=== PATIENT | male | born 1975 | race Two or more races ===

== ENCOUNTER 2025-03-08 09:35 | Emergency (ER) | payer OTHER, SELFPAY ==
[2025-03-08 09:55] VITALS: BP 126/85; PULSE 75; RESP 19; TEMP 37; O2SAT 99; BMI 26.9
--- NOTE | 2025-03-08 09:59 | XR_ITS ---
Examination: Knee, left , 3 views Technique: Knee AP, lateral, oblique 3 views Date and time of exam: March 08, 2025 1010 hours INDICATIONS: Left knee pain beginning 2 weeks ago. FINDINGS: Mild osteoarthritis medial patellofemoral joint Mild osteopenia No fracture or dislocation Minimal knee effusion IMPRESSION: Mild osteoarthritis
--- NOTE | 2025-03-08 11:12 | PD.EDLOWEX ---
Lower Extremity Injury RME/HPI General Chief Complaint: Extremity Injury, Lower Stated Complaint: LEFT KNEE PAIN NO INJURY Time Seen by Provider: 03/08/25 10:00 Source: patient Arrival date/time: 03/08/25 09:35 49-year-old male with no known medical history presents to the emergency room with a chief complaint of left-sided knee tenderness and swelling x 2 weeks. Mode of arrival: ambulatory Limitations: no limitations Related Data Home Medications ?Medication ?Instructions ?Recorded ?Confirmed Cyclobenzaprine * (FLEXERIL *) 10 mg PO Q8HR PRN MUSCLE SPASMS #0 02/04/14 tabs omeprazole 20 mg capsule,delayed 20 mg PO QDAY ##0 02/04/14 release (Prilosec) Previous Rx's ?Medication ?Instructions ?Recorded Hydrocodone Bit/Acetaminophen 1 tab PO QIDPRN ##20 12/07/12 ([place] 10-325 Tablet) Allergies Allergy/AdvReac Type Severity Reaction Status Date / Time NKA* Allergy Uncoded 03/08/25 09:38 Review of Systems Review of Systems Systems Reviewed: All systems reviewed, normal except as documented Constitutional Constitutional: Reports system reviewed and no additional complaints, except as documented, Denies fatigue, Denies fever(s), Denies headache(s) and Denies weakness Eyes Eyes: Reports system reviewed and no additional complaints, except as documented, Denies blurry vision and Denies change in vision ENT Ears, Nose, Mouth, and Throat: Reports system reviewed and no additional complaints, except as documented, Denies otalgia, Denies headache(s), Denies nasal congestion, Denies throat swelling and Denies vertigo Cardiovascular Cardiovascular: Reports system reviewed and no additional complaints, except as documented, Denies chest pain, Denies dyspnea and Denies dyspnea on exertion Respiratory Respiratory: Reports system reviewed and no additional complaints, except as documented, Denies chest congestion, Denies cough, Denies dyspnea, Denies dyspnea on exertion and Denies wheezing Gastrointestinal Gastrointestinal: Reports system reviewed and no additional complaints, except as documented, Denies abdominal pain, Denies cramping, Denies nausea and Denies vomiting Genitourinary Genitourinary: Reports system reviewed and no additional complaints, except as documented, Denies dysuria and Denies hematuria Musculoskeletal Musculoskeletal: Reports system reviewed and no additional complaints, except as documented, Reports arthralgias, Denies back pain, Reports joint swelling and Reports limited range of motion Integumentary/Breasts Skin/Breast: Reports system reviewed and no additional complaints, except as documented and Denies wounds Neurologic Neurologic: Reports system reviewed and no additional complaints, except as documented, Denies confusion, Denies headache(s), Denies lack of coordination, Denies vertigo and Denies weakness Psychiatric Psychiatric: Reports system reviewed and no additional complaints, except as documented, Denies anxiety, Denies confusion, Denies depression, Denies paranoia, Denies suicidal ideation and Denies tactile hallucinations Endocrine Endocrine: Reports system reviewed and no additional complaints, except as documented and Denies fatigue Hematologic/Lymphatic Hematologic/Lymphatic: Reports system reviewed and no additional complaints, except as documented and Denies lymphadenopathy Allergic/Immunologic Allergic/Immunologic: Reports system reviewed and no additional complaints, except as documented, Denies throat swelling, Denies urticaria and Denies wheezing Past Medical History Social History SMOKING STATUS: Never smoker ED Exam General Limitations: Present no limitations General appearance: Present alert and in no apparent distress Head Head exam: Present atraumatic Eye Eye exam: Present normal appearance, PERRL and EOMI ENT ENT exam: Present normal exam, normal oropharynx and mucous membranes moist Neck Neck exam: Present normal inspection, full ROM and trachea midline Chest Chest inspection: Present normal inspection and symmetric chest wall rise Respiratory Respiratory exam: Present normal lung sounds bilaterally Cardiovascular Cardiovascular exam: Present regular rate, normal rhythm and normal heart sounds Abdominal Exam Abdominal exam: Present soft and normal bowel sounds Extremities Exam Extremities exam: Present normal inspection and full ROM Expanded Lower Extremity Exam Hip/Pelvis exam: Present normal inspection Upper leg exam: Present normal inspection Knee exam: Present full ROM, tenderness, swelling, effusion, pain with valgus, laxity with valgus, pain with varus and knee extension intact; Absent erythema Lower leg exam: Present normal inspection Ankle exam: Present normal inspection Foot/toe exam: Present normal inspection Gait: observed and limited by pain Back Exam Back exam: Present normal inspection and full ROM Neurological Exam Neurological exam: Present alert, oriented X3 and CN II-XII intact Psychiatric Psychiatric exam: Present normal affect and normal mood Skin Skin exam: Present warm, dry, intact and normal color Course Quality Measures none Orders Category Date Time Status XR knee LT 3V Stat Exams 03/08/25 09:59 Completed Vital Signs Vital signs: Vital Signs Temperature 98.6 F 03/08/25 09:55 Pulse Rate 75 03/08/25 09:55 Respiratory Rate 19 03/08/25 09:55 Blood Pressure 126/85 H 03/08/25 09:55 Pulse Oximetry (%) 99 03/08/25 09:55 Oxygen Delivery Method Room Air 03/08/25 09:55 O2 saturation 99% within normal limits Extremity Injury, Lower MDM Narrative MDM Narrative:: 49-year-old male with no known medical history presents to the emergency room with a chief complaint of left-sided knee tenderness and swelling x 2 weeks. Patient is hemodynamically stable and in no apparent distress. Patient denies any trauma or fall Physical examination shows tenderness, mild swelling and pain to the left knee. There is pain with palpation to the lateral side on the left. There is no warmth or erythema. Patient has a knee brace on that he purchased on [employer]. X-ray of the left knee was completed and was negative for any acute fracture or dislocation and shows osteoarthritis of the left knee. Patient was discharged and educated that if the signs and symptoms continue that he will need to follow-up with his primary care provider for an MRI to check for any ligament damage or tears. Patient data External records reviewed:: [facility] Clinical information provided by:: patient Social determinants that could affect healthcare access:: none Patient has the following chronic illnesses:: No chronic illness How is presenting disease/condition affected by chronic disease/condition?: no chronic disease Evaluation data The following diagnostics were reviewed and interpreted by me:: lab results and radiology exam(s) Lab and/or radiology exams considered but not ordered:: Labs and radiology exams considered and ordered Interpretation Summary: Left knee [id number]: Mild osteoarthritis medial patellofemoral joint Mild osteopenia No fracture or dislocation Minimal knee effusion IMPRESSION: Mild osteoarthritis Medications / Prescriptions Medications or Prescriptions considered but not ordered:: No medication given Medication administrations:: No medication given Consultations Consultation(s) initiated? (list below): No Diagnosis Extremity Injury, Lower Differential Diagnosis: ankle sprain and strain, acute internal derangement of knee and other (Left knee pain//left knee fracture/osteoarthritis of the knee) Most likely diagnosis given after review of the tests above:: Osteoarthritis of the left knee Admission Indicated Admission indicated?: not indicated Admission Request Was there a request for admission?: No Disposition Plan Disposition Plan: Discharge Discharge Attestation Discharge Attestation: The patient and all family members were given an opportunity to ask questions and understood the discharge instructions. Discharge instructions specifically effects, indications for sooner follow up or return to the emergency department, and the expected course of current diagnosis. Patient condition: Stable Discharge Plan Plan Patient Disposition: HOME (Self Care) Disposition Comment: Stable Prescriptions/Referrals Prescriptions/Med Rec: No Action Hydrocodone Bit/Acetaminophen ([place] 10-325 Tablet) 1 TAB tablet 1 tab PO QIDPRN Qty: 20 0RF omeprazole [Prilosec] 20 MG capsule,delayed release(DR/EC) 20 mg PO QDAY Qty: 0 Patient Comments: TO SUPPRESS GASTRIC ACID SECRETIONS Cyclobenzaprine * (FLEXERIL *) 10 MG tablet 10 mg PO Q8HR PRN (Reason: MUSCLE SPASMS) Qty: 0 Referrals: No Primary/Family,Physician [Primary Care Provider] - In 1 week Problem List Clinical Impression: Osteoarthritis of left knee Patient/Caregiver Discharge Instructions Education Materials: ED Osteoarthritis Additional Instructions: Por favor, consulte con [facility] m?dico de cabecera en las pr?ximas 24 a 48 horas. Se realiz? jackelin radiograf?a de [place] rodilla izquierda y el resultado fue negativo para fracturas o luxaciones agudas. Si los signos y s?ntomas persisten, consulte con [facility] m?dico de cabecera, ya que ser? necesaria jackelin resonancia magn?nellie para detectar cualquier da?o o desgarro de ligamentos. La radiograf?a de [place]ci[place] rodilla izquierda mostr? osteoartritis; consulte con [facility] m?dico de cabecera para recibir tratamiento adicional. Si observa alg?n empeoramiento de los signos o s?ntomas, acuda a urgencias de inmediato. Print Language: Kinyarwanda Stand Alone Forms: Emma Award Info., Patient Portal Info Letter PA/SKIDWAY WORKER Supervising Physician PA/SKIDWAY WORKER Supervising Physician: Dr Bates
[2025-03-08] MEDS: KETOROLAC INJ 60 MG/2 ML VIAL 30 MG IM (11:58)
== END 2025-03-08 12:24 | disposition home or self-care (01) ==
PROVIDERS: Emergency Provider Emergency Medicine
DX: M17.12 Unilateral primary osteoarthritis, left knee (principal)
CPT/HCPCS: 73562; 96372; 99283; J1885